=== PATIENT | female | born 1985 | race Hispanic/Latino ===

== ENCOUNTER 2025-03-06 08:52 | Day surgery (SDC) | payer OTHER ==
[~2025-03-06] VITALS: Ht 149.9 cm; Wt 56.7 kg
[2025-03-06] VITALS (10 sets, daily range): BP systolic 112–128; BP diastolic 50–88; PULSE 64–77; RESP 15–18; TEMP 97.4–98.1
[~2025-03-06 08:52] MED LIST: LINA145C PO; OMEP40CA21 PO
[2025-03-06] MEDS ORDERED: ERGO500093 PO (09:20)
[2025-03-06] MEDS ORDERED: PANT40TA54 PO (09:20)
[2025-03-06] MEDS: 0.9%NACL 1000ML 1,000 ML IV ONE (09:25)
[2025-03-06] MEDS ORDERED: proPOFol 10 MG/ML 20ML VIAL IV ONE (09:34)
[2025-03-06] MEDS ORDERED: LIDOCAINE PF 100MG/5ML (2%) SYRINGE 5ML ONE (09:34)
[2025-03-06] MEDS ORDERED: MIDAZOLAM HCL 1 MG/ML 2ML VIAL ONE (09:40)
== END 2025-03-06 10:43 | disposition home or self-care (01) ==
LOC: DAH 08:52 → ENDO 08:52
PROVIDERS: ATTEND Internal Medicine Gastroenterology
DX: K21.9 Gastro-esophageal reflux disease without esophagitis (principal); K29.50 Unspecified chronic gastritis without bleeding; K22.89 Other specified disease of esophagus; K59.00 Constipation, unspecified; F41.9 Anxiety disorder, unspecified; Z90.49 Acquired absence of other specified parts of digestive tract; Z79.899 Other long term (current) drug therapy
CPT/HCPCS: 43239; 81025; J7030; J2003; J2250; J2704; A4620; A4215 ×2; A4223; A4222; A4221; A4663; A4606; J3490